=== PATIENT | male | born 1955 | race Two or more races ===

== ENCOUNTER → 2020-02-01 | Day surgery (SDC) | payer OTHER ==
[~2020-02-01] MED LIST: LOSARTAN POTASS50 MG PO; NORVASC5 MG PO
== END | disposition home or self-care (01) ==
LOC: LAB 01-26 09:42 → EDSTATUS 01-28 11:20 → CIR.AMB 11:00
PROVIDERS: ATTEND Orthopaedic Surgery Sports Medicine
DX: M75.122 Complete rotator cuff tear or rupture of left shoulder, not specified as traumatic (principal); M75.42 Impingement syndrome of left shoulder; M75.22 Bicipital tendinitis, left shoulder; Z20.828 Contact with and (suspected) exposure to other viral communicable diseases; M24.012 Loose body in left shoulder